=== PATIENT | male | born 1955 | race Caucasian/White ===

== ENCOUNTER 2023-09-16 06:12 | Day surgery (SDC) | payer OTHER ==
[~2023-09-16] VITALS: Ht 177.8 cm; Wt 90.7 kg
[2023-09-16] MEDS ORDERED: CEFAZOLIN SOD 2 GM in D5W 50 ML IV ONE (07:00)
[2023-09-16] MEDS ORDERED: ONDANSETRON HCL 4 MG/2 ML VIAL ONE (07:40)
[2023-09-16] MEDS ORDERED: METOCLOPRAMIDE HCL 10 MG/2 ML VIAL ONE (07:40)
[2023-09-16] MEDS ORDERED: fentaNYL CITRATE/PF 100 MCG/2 ML AMP ONE (07:40)
[2023-09-16] MEDS ORDERED: DEXAMETHASONE SOD PHOSPHATE 4 MG/ML VIAL ONE (07:41)
[2023-09-16] MEDS ORDERED: ACETAMINOPHEN I.V. 1000 MG 100 ML IV ONE (07:41)
[2023-09-16] MEDS ORDERED: LIDOCAINE JECT 2% PF 100 MG/5ML SYRINGE ONE (07:42)
[2023-09-16] MEDS ORDERED: SUCCINYLCHOLINE CHLORIDE 20 MG/ML(QUELICIN) ONE (07:57)
[2023-09-16] MEDS ORDERED: SUGAMMADEX SODIUM 200 MG/2 ML VIAL IV ONE (07:57)
[2023-09-16] MEDS ORDERED: NS 100 ML BAG ONE (07:57)
[2023-09-16] MEDS ORDERED: LR 1,000 ML IV.SOLN IV ONE (07:57)
[2023-09-16] MEDS ORDERED: NS IRRIG SOLN 1000 ML IR ONE (07:57)
[2023-09-16] MEDS ORDERED: SEVOFLURANE 15 MIN GAS INH ONE (07:57)
[2023-09-16] MEDS ORDERED: PROPOFOL 200MG/ 20ML VIAL (DIPRIVAN) IV ONE (07:57)
[2023-09-16] MEDS ORDERED: ROCURONIUM BROMIDE 10 MG/ML (ZEMURON) ONE (07:57)
[2023-09-16] MEDS ORDERED: KETOROLAC TROMETHAMINE 30 MG VIAL ONE (07:57)
[2023-09-16] MEDS ORDERED: HEPARIN SODIUM,PORCINE 10,000 UNIT/ML VIAL ONE (07:57)
[2023-09-16] MEDS ORDERED: MEPERIDINE HCL/PF 25 MG/ML DISP.SYRIN IVP PRN (09:45)
[2023-09-16] MEDS ORDERED: ePHEDrine sulfate 50 MG/ML VIAL IVP PRN (09:45)
[2023-09-16] MEDS ORDERED: MORPHINE 4 MG INJ. 4 MG/ML VIAL IVP PRN ×2 (09:45)
[2023-09-16] MEDS ORDERED: HYDROmorphone 1 MG/ML INJ. CARTRIDGE IVP PRN ×3 (09:45→12:00)
[2023-09-16] MEDS ORDERED: BUPIVACAINE LIPOSOME/PF 266 MG/20 ML VIAL INFIL ONE (11:03)
[2023-09-16] MEDS ORDERED: HYDROcodone/ACETAMIN 5-325 MG TAB (NORCO/ VICODIN) PO PRN ×2 (12:00)
[2023-09-16 13:00] VITALS: BP_SYST 123; PULSE 91; RESP 18; TEMP 97.8; O2SAT 99
[2023-09-16] MEDS ORDERED: NEBI5TAB3 PO (14:25)
[2023-09-16 19:45] VITALS: O2SAT 97
[2023-09-16] MEDS: D5/0.45 NS 1,000 ML IV SCH ×2 (19:52→22:00)
[2023-09-16 20:00] VITALS: BP_SYST 123; PULSE 97; RESP 18; TEMP 97.3; O2SAT 96
[2023-09-17 00:09] VITALS: BP_SYST 116; PULSE 99; RESP 18; TEMP 98.3; O2SAT 94
[2023-09-17 09:23] VITALS: BP_SYST 119; RESP 16; TEMP 98; O2SAT 96
[2023-09-17 10:58] VITALS: BP_SYST 102; PULSE 93; RESP 18; TEMP 97.6; O2SAT 96
== END 2023-09-17 11:20 | disposition home or self-care (01) ==
LOC: SOR 06:12 → SMU 06:15 → EDSTATUS 08:35 → SMU 13:05 → SOR 09-17 11:20
PROVIDERS: ATTEND Colon & Rectal Surgery
DX: K40.30 Unilateral inguinal hernia, with obstruction, without gangrene, not specified as recurrent (principal); I10 Essential (primary) hypertension; E78.2 Mixed hyperlipidemia; L40.9 Psoriasis, unspecified; Z79.899 Other long term (current) drug therapy
CPT/HCPCS: 87081; 49507; 88302; C1781; J3490; C9290; J0690; J1100; J1644; J1885; J2765; J2405; J2704; J0330; J3010; J7060; J7120; J0131